=== PATIENT | female | born 1990 | race African-American/Black ===

== ENCOUNTER 2016-09-14 11:04 | Emergency (ER) | payer BC, OTHER ==
--- NOTE | ~2016-09-14 | CR63 ---
[facility] A Service of [facility] RADIOLOGY TEXT RESULTS PATIENT: JONH ROSALES LOCATION: CFTX : 89 UNIT #: [id number] AGE: [address]: Ginny Alexander APRN SEX: F ORDER DR: [id number] [facility] [address] [place], [place] [address] [id number] MR#: [id number] Acc #: [id number] NAME: JONH ROSALES : 1990 SEX: F STUDY DATE/TIME: 09/14/2016 11:09 UNIT: [facility] ROOM: STUDY DESCRIPTION: CR Chest 2 View Attending Physician: Ginny Alexander A.P.R.N. Ordering Physician: Ed Doctor [id number] [facility] Primary Care Physician: Primary Care Physician No MEDICAL IMAGING REPORT This report is preliminary unless electronic signature is present EXAM Chest 2 views 09/14/2016 1109 hours HISTORY 26-year-old woman with complaint of cough and congestion for 2 months. History of smoking for 12 years. COMPARISON None. FINDINGS Upright PA and lateral views of the chest demonstrate normal cardiac, mediastinal and hilar contours. Lungs are mildly hyperinflated but clear of acute densities. Benign calcified granulomata present. There are no effusions. IMPRESSION There is mild hyperinflation with underlying benign calcified granulomatous change. No acute cardiopulmonary findings. Dictated by... Angeline Butler M.D. THIS IS AN ELECTRONICALLY VERIFIED REPORT Angeline Butler M.D. at 09/14/2016 2:28 PM GARY/berlin TD: 09/14/2016 12:58 JOB #: [id number] MEDICAL IMAGING REPORT Page 1 of 1 COPY
[~2016-09-14 11:04] MED LIST: FLEXERIL10 MG PO; KEFLEX500 M1; LORTAB 10-5001 EACH PO; MACROBID100 MG PO; METROGEL-VAGINA70 GM VG; MOTRIN600 MG PO; NO MEDICATIONS; ORUDIS75 M1 PO; PHENERGAN PO; PHENERGAN25 MG PO; TRAMADOL HCL50 M1 PO; VOLTAREN75 MG PO; ZITHROMAX PO
== END 2016-09-14 12:11 | disposition home or self-care (01) ==
LOC: CFTX 11:04
DX: J20.9 Acute bronchitis, unspecified (principal); F17.210 Nicotine dependence, cigarettes, uncomplicated
CPT/HCPCS: 71020; 84703; 87070; 87651; 99283; 99284